=== PATIENT | male | born 1940 | race Caucasian/White ===

== ENCOUNTER → 2017-02-11 | Outpatient (CLI) | payer OTHER ==
--- NOTE | 2017-02-11 14:50 | PCVCIMAG ---
APPROVED REPORT Exam: Stress Echocardiogram Indication: CAD, RCA STENT, HTN Stress Nurse: Mei Bolotn RN Status: routine HR: 74 bpm Rhythm: NSR Medical History Medical History: CAD s/p stent Procedure The patient underwent an Exercise Stress Test using the Roni Protocol. Blood pressure, heart rate, and EKG were monitored. An Echocardiogram was performed by integration technician in four stages in quad fashion. At peak stress, four selected images were obtained and placed side by side with resting images for comparison. Stress Test Details Stress Test: Exercise stress testing was performed using a Roni protocol. HR Resting HR: 74 bpmMax Heart Rate (APMHR): 145 bpm Max HR Achieved: 169 bpmTarget HR (85% APMHR): 123 bpm % of APMHR: 116 Recovery HR: 100 bpm HR response to stress: Normal HR response to stress BP Resting BP: 130/80 mmHg Max BP: 202/90 mmHg Recovery BP: 168/84 mmHg ECG Resting ECG: Sinus Rhythm with baseline T wave abnormality Stress ECG: Sinus Rhythm with ST depression inferiorly and laterally ST Change: Downsloping ST depression Arrhythmia: Frequent isolated PVCs Recovery ECG: Sinus Rhythm w/ PVCs and T wave abnormality Recovery Arrhythmia: Sinus rhythm with isolated PVCs Clinical Reason for Termination: Maximal effort Stress Symptoms: Chest tightness that subsided at peak exercise Exercise duration: 10 min 30 sec Highest Stage Achieved: Stage 4: 4.2 mph at 16% grade. Exercise capacity: 13.7 METs Overall Exercise Capacity for Age: Good Pre-Stress Echo The resting Echocardiogram showed normal left ventricular contractility with an estimated Ejection Fraction of about >55%. Normal wall motion in all segments on baseline images. Post-Stress Echo The stress Echocardiogram showed normal left ventricular contractility with an estimated Ejection Fraction of about 60-65%. Normal augmentation of wall motion in all segments on post stress images. Clinical Equivocal ECG evidence for ischemia due to baseline abnormality. Conclusion Clinical Response: Non-ischemic Exercise Capacity: Average Stress ECG Response: Equivocal Stress Echo Images: Non-ischemic
== END | disposition home or self-care (01) ==
LOC: PCVCIMAG 10:36
PROVIDERS: ATTEND Internal Medicine Cardiovascular Disease
DX: I49.3 Ventricular premature depolarization (principal); I25.10 Atherosclerotic heart disease of native coronary artery without angina pectoris; I10 Essential (primary) hypertension; Z95.5 Presence of coronary angioplasty implant and graft
CPT/HCPCS: 93325; 93351

== ENCOUNTER → 2018-12-19 | Outpatient (CLI) | payer OTHER ==
--- NOTE | 2018-12-19 13:17 | PCVCIMAG ---
APPROVED REPORT Study performed: 12/19/2018 11:07:40 Exam: Stress Echocardiogram Indication: CAD s/p PCI, abn ekg, htn Patient Location: Echo lab Stress Nurse: Mei Bolton RN Status: routine Ht: 5 ft 9 in HR: 60 bpm BP: 132/82 mmHg Rhythm: NSR Procedure The patient underwent an Exercise Stress Test using the Roni Protocol. Blood pressure, heart rate, and EKG were monitored. An Echocardiogram was performed by medical chief technician in four stages in quad fashion. At peak stress, four selected images were obtained and placed side by side with resting images for comparison. Stress Test Details Stress Test: Exercise stress testing was performed using a Roni protocol. HR Resting HR: 60 bpmMax Heart Rate (APMHR): 143 bpm Max HR Achieved: 157 bpmTarget HR (85% APMHR): 121 bpm % of APMHR: 109 Recovery HR: 88 bpm HR response to stress: Normal HR response to stress BP Resting BP: 132/82 mmHg Max BP: 186/86 mmHg Recovery BP: 138/76 mmHg BP response to stress: Normal blood pressure response to stress. ECG Resting ECG: Sinus Rhythm, nonspecific inferior T wave abnormalities Stress ECG: Sinus Rhythm, nonspecific ST-T abnormalities ST Change: Nondiagnostic resting ST abnormalities Arrhythmia: frequent PVCs Recovery ECG: Sinus Rhythm, nonspecific ST-T abnormalities Recovery ST Change: Nondiagnostic resting ST abnormalities Recovery Arrhythmia: frequent PVCs Clinical Reason for Termination: Maximal effort Stress Symptoms: Dyspnea Exercise duration: 9 min sec Highest Stage Achieved: Stage 3: 3.4 mph at 14% grade. Exercise capacity: 10.1 METs Overall Exercise Capacity for Age: Good Scale: Active Angina Score: None Pre-Stress Echo The resting Echocardiogram showed normal left ventricular contractility with an estimated Ejection Fraction of about >55%. Normal wall motion in all segments on baseline images. Post-Stress Echo The stress Echocardiogram showed normal left ventricular contractility with an estimated Ejection Fraction of about 65%. Normal augmentation of wall motion in all segments on post stress images. Clinical No clinical or ECG evidence for ischemia. Conclusion Clinical Response: Non-ischemic Exercise Capacity: Average Stress ECG Response: Non-ischemic Stress Echo Images: Non-ischemic The left ventricle is normal in size and wall thickness in both the rest and stress images. Other Information Study Quality: Adequate <Conclusion> The left ventricle is normal in size and wall thickness in both the rest and stress images.
== END | disposition home or self-care (01) ==
LOC: PCVCIMAG 10:56
PROVIDERS: ATTEND Internal Medicine Cardiovascular Disease
DX: I25.10 Atherosclerotic heart disease of native coronary artery without angina pectoris (principal); R94.31 Abnormal electrocardiogram [ECG] [EKG]; I10 Essential (primary) hypertension; K22.9 Disease of esophagus, unspecified; R59.0 Localized enlarged lymph nodes; E78.00 Pure hypercholesterolemia, unspecified; R06.83 Snoring; Z95.5 Presence of coronary angioplasty implant and graft
CPT/HCPCS: 93325; 93351